=== PATIENT | male | born 1955 | race Caucasian/White ===

== ENCOUNTER 2022-02-26 16:46 | Emergency (ER) | payer MEDICARE, SELFPAY ==
--- NOTE | ~2022-02-26 | XR_ITS ---
EXAMINATION: XR CHEST CLINICAL INFORMATION: Shortness of breath. COMPARISON: None TECHNIQUE: Frontal view of the chest was obtained. FINDINGS: Subtle opacities are seen in the right lower lung. The left lung is clear. The heart and mediastinal structures are unremarkable. XR/XR chest 1V IMPRESSION: Subtle opacities in the right lower lung could represent summation of overlapping structures however atelectasis and/or infiltrate cannot be excluded. If symptoms persist or worsen, repeat PA and lateral views of the chest are recommended.
[2022-02-26 16:51] VITALS: BP 168/70; PULSE 104; RESP 28; TEMP 37; O2SAT 84; BMI 27.6
[2022-02-26 17:08] VITALS: PULSE 102; RESP 21; O2SAT 88
--- NOTE | 2022-02-26 17:11 | ECG_ITS ---
Test Reason : DYSPNEA Blood Pressure : / mmHG Vent. Rate : 108 BPM Atrial Rate : 108 BPM P-R Int : 164 ms QRS Dur : 124 ms QT Int : 360 ms P-R-T Axes : 079 -59 020 degrees QTc Int : 482 ms Sinus tachycardia Right bundle branch block Left anterior fascicular block Bifascicular block Abnormal ECG No previous ECGs available Referred By: Mary Jacob Electronically Signed By:ARUN CALVIN
--- NOTE | 2022-02-26 17:16 | ED_ITS ---
HPI - SOB/Dyspnea General Chief Complaint: Dyspnea Stated Complaint: asthma Time Seen by Provider: 02/26/22 17:01 Source: patient Mode of arrival: ambulatory Limitations: no limitations History of Present Illness HPI Narrative: Patient comes to the emergency room complaining of shortness of breath, started 45 min prior to arrival. pt has hx of asthma and copd. pt states that the SOB was triggered by polen. Denies chest pain Related Data Previous Rx's Medication Instructions Recorded albuterol sulfate 90 mcg/actuation 2 puff INHALATION Q4-6H PRN #8.5 g 02/26/22 aerosol inhaler azithromycin 250 mg tablet 250 mg PO DAILY 5 Days #5 tab 02/26/22 prednisone 50 mg tablet 50 mg PO DAILY #4 tab 02/26/22 Allergies Allergy/AdvReac Type Severity Reaction Status Date / Time No Known Allergies Allergy Verified 02/26/22 16:50 Review of Systems Review of Systems: Constitutional : No Weight loss, No Fever, No Chills, No Night Sweats, No Fatigue, No Malaise ENT/Mouth : No Hearing loss, No Ear Pain, No Nasal Congestion, No Sinus Pain, No Hoarseness, No sore throat, No Rhinorrhea, No Swallowing Difficulty Eyes: No Eye Pain, No Swelling, No Redness, No Foreign Body, No Discharge, No Vision Changes Cardiovascular : No Chest Pain, No SOB, No Dyspnea on Exertion, No Orthopnea, No Edema, No Palpitations Respiratory : No Cough, No Sputum, complaining of wheezing and shortness of breath Gastrointestinal : No Nausea, No Vomiting, No Diarrhea, No Constipation, No abdominal Pain, No Hematochezia, No Melena Genitourinary : no irregular bleeding, No Dysuria, No Urinary Frequency, No Hematuria, No Urinary Incontinence, No Urgency, No Flank Pain, No Urinary Flow Changes, No Hesitancy Musculoskeletal : No joint pain, No Myalgias, No Joint Swelling Skin : No Skin Lesions, No rash Neuro : No Weakness, No Numbness, No Paresthesias, No Loss of Consciousness, No Dizziness, No Headache Psych : No Anxiety/Panic, No Depression, No SI/HI/AH/VH, No Social Issues, Heme/Lymph: No Bruising, No Bleeding,No Lymphadenopathy Endocrine : No Polyuria, No Polydipsia, No Temperature Intolerance [facility] Past Medical History Medical History (Updated 02/26/22 @ 18:09 by Mary Jacob MD) Asthma Atrial fibrillation COPD (chronic obstructive pulmonary disease) case management patient Hypertension Social History Social History Advance Directives: No Advance Directives Information Provided: No Physical Exam Vital Signs: Vital Signs: Last Vital Signs Temp 98.6 F 02/26/22 16:51 Pulse 116 H 02/26/22 18:06 Resp 19 02/26/22 18:06 BP 128/78 02/26/22 18:06 Pulse Ox 97 02/26/22 18:06 BMI result Body Mass Index 27.6 Const: Other: Appearance: Alert. Oriented X3. No acute distress. Eyes: Pupils equal, round and reactive to light. ENT: Pharynx normal. Neck: Normal inspection. Neck supple. No lymph nodes noted. No crepitus CVS: Normal heart rate and rhythm. Pulses normal. Normal S1 and S2 Respiratory: Tachypneic, speaking in one-word sentences, respiratory rate close to 30, oxygen saturation 84% on room air, bilateral wheezing with poor air movement Abdomen: Soft and nontender. No rigidity. No distention. Skin: Skin warm and dry. Normal skin color. Normal skin turgor. Extremities: No lower extremity edema. No Lacerations. No Rash Neuro: Oriented X 3. No motor deficit. No sensory deficit. Moving all extremities. No slurred speech. CN 2 through 12 grossly intact Psych: calm, cooperative, normal affect Course Course Course Narrative: Patient received IV fluids, Solu-Medrol, magnesium, DuoNebs and albuterol. Patient just started his treatment, states that he already feels much better, fe els less tight., all labs and imaging pending Patient's nurse the patient feels much better, he does not want to have an IV, patient states that he has places to go, people to see, and would like to be discharged. Patient does not have cough, increased sputum production, this is likely an asthma exacerbation rather than COPD. Patient declined lab work as well. Prior to discharge, patient is not wheezing, good air movement, oxygen saturation 96% on room air. Patient declined to stay any longer Chest x-ray shows possible infiltrate. Patient does not have URI symptoms. However, given the patient's comorbidities we will go ahead and treat Discharge Plan Discharge Clinical Impression: Asthma, Pneumonia Patient Disposition: Home, Self-Care Instructions: Asthma (ED) Additional Instructions: Please follow-up with your primary care physician tomorrow. If you have any worsening or new symptoms, please return to the emergency room or call 911 Prescriptions: New prednisone 50 mg tablet 50 mg PO DAILY Qty: 4 0RF azithromycin 250 mg tablet 250 mg PO DAILY 5 Days Qty: 5 0RF albuterol sulfate 90 mcg/actuation HFA aerosol inhaler 2 puff inhalation Q4-6H PRN (Reason: shortness of breath or wheezing) Qty: 8.5 0RF Interventions: ED Discharge Assessment Last Done: 02/26/22 18:13
[2022-02-26] MEDS: Albuterol/Iprat 2.5/0.5MG 3 ML AMPUL.NEB INHALE (17:18)
[2022-02-26] MEDS: Albuterol Sulfate (0.083%) 2.5 MG/3 ML VIAL.NEB 7.5 MG INHALE (17:18)
--- NOTE | 2022-02-26 17:34 | PC.NURSE ---
Pt refused IV and IV meds, aware, confirmed w/pt he would stop at [facility] on [address] for RX when DC;d
[2022-02-26] MEDS: predniSONE 20 MG TABLET 60 MG PO (18:03)
[2022-02-26 18:06] VITALS: BP 128/78; PULSE 116; RESP 19; O2SAT 97
== END 2022-02-26 18:16 | disposition home or self-care (01) ==
LOC: HO.ED 18:02
PROVIDERS: Emergency Provider Emergency Medicine
DX: J45.909 Unspecified asthma, uncomplicated (principal); J18.9 Pneumonia, unspecified organism; R06.02 Shortness of breath; I48.91 Unspecified atrial fibrillation; I10 Essential (primary) hypertension
CPT/HCPCS: 71045; 93005; 94640; 94644; 96365; 96366; 96375; 99284